=== PATIENT | male | born 1955 | race Caucasian/White ===

== ENCOUNTER → 2018-11-04 06:58 | Outpatient (CLI) | payer BC, MEDICARE, SELFPAY ==
[2014-05-11 09:47] VITALS: BMI 32.8
--- NOTE | 2018-11-04 09:30 | STRESSREP ---
Stress Test Report Date: 11-04-18 Procedure: Pharmacologic stress nuclear imaging study Indications: Chest pain; shortness of breath/dyspnea Consent: Per the patient Procedure: The patient underwent pharmacologic (Regadenoson) evaluation with a peak heart rate of 101 beats per minute (64 %predicted maximal heart rate) and a peak blood pressure of 162/70 mmHg. The baseline ECG demonstrated normal sinus rhythm. The peak pharmacologic ECG demonstrated no obvious ECG changes. There were no cardiac dysrhythmias pretest, during pharmacologic infusion, or recovery. There was no complaint of chest discomfort during pharmacologic infusion or recovery. The examination was discontinued secondary to completion of protocol. Impression: 1. Pharmacologic (Regadenoson) evaluation 2. Peak pharmacologic ECG with no obvious ECG changes. 3. There were no cardiac dysrhythmias pretest, during pharmacologic infusion, or recovery. 4. Nuclear images pending Myocardial perfusion imaging study: Technique: The patient was injected with 14.8 millicuries of technetium 99m Cardiolite and subsequently rest SPECT Cardiolite nuclear imaging was obtained in the horizontal long, vertical long, and short axis views. The patient underwent pharmacologic (Regadenoson) evaluation with a peak heart rate of 101 beats per minute (64 % percent predicted maximal heart rate) and a peak blood pressure of 162/70 mmHg. The patient was injected with 44.4 millicuries of technetium 99m Cardiolite and subsequently stress SPECT Cardiolite nuclear imaging was obtained in the horizontal long, vertical long, and short axis views. A gated Cardiolite study at peak stress was obtained. Interpretation: Rest and stress SPECT Cardiolite nuclear imaging status post realignment, normalization, and attenuation correction demonstrate the appearance of relative uniform tracer uptake and myocardial perfusion appearing within normal limits at rest. Status post stress there is an area of diminished myocardial perfusion/tracer uptake in portions of the basal to mid anterior segments. There are similar type findings on the resting and stress polar map images. There is diminished and systolic thickening and brightening in the aforementioned area.. The gated Cardiolite study demonstrates myocardial thickening and inward wall motion. The reported LVEF is 64 %. Impression: 1. Rest and stress SPECT Cardiolite nuclear imaging demonstrate myocardial perfusion changes concerning for an area of stress-induced myocardial ischemia and portions of the basal to mid anterior segments. 2. The gated Cardiolite study reports an LVEF of 64 %. This note was generated with Dragon dictation software. It may contain incorrect words, spelling, and punctuation that were not noted in checking the note before signing.
== END ==
PROVIDERS: Family Provider Family Medicine; PCP Family Medicine; Referring Provider Family Medicine; Visit Provider Family Medicine
DX: R06.02 Shortness of breath (principal); Z87.891 Personal history of nicotine dependence
CPT/HCPCS: 78452; 93017; A9500; A4216; J2785

== ENCOUNTER → 2018-11-09 07:24 | Outpatient (CLI) | payer BC, MEDICARE, SELFPAY ==
[2014-05-11 09:47] VITALS: BMI 32.8
--- NOTE | 2018-11-09 07:30 | AAVD_ITS ---
Reason For Study: Ex Smoker Aorta Measurements Aorta Doppler Measurements Proximal aorta measures1.31 x 1.31cm. in cross- Peak systolic flow velocities within the proximal sectional axis. aorta measure 90.4 cm/sec. Proximal aorta measures1.28cm. in longitudinal Peak systolic flow velocities within the mid aorta axis. measure 97.8 cm/sec. Mid aorta measures1.22 x 1.21cm. in cross- Peak systolic flow velocities within the distal sectional axis. aorta measure 146.2 cm/sec. Mid aorta measures1.22cm. in longitudinal axis. Distal aorta measures1.40 x 1.38cm. in cross- sectional axis. Distal aorta measures1.45cm. in longitudinal axis. Left Iliac Artery Left iliac artery measures 0.91 x 0.96 cm. in the cross-sectional axis. Left iliac artery measures 0.89 cm. in the longitudinal axis. Peak systolic velocity in the left iliac artery measures 104.5 cm/sec. Right Iliac Artery Right iliac artery measures 0.72 x 0.73 cm. in the cross-sectional axis. Right iliac artery measures 0.72 cm. in the longitudinal axis. Peak systolic velocity in the right iliac artery measures 104.5 cm/sec. Procedure Aorta IVC Iliac vasculature or bypass grafts 35436. Exam performed in department. Interpretation Summary The intra-abdominal aorta appears to be of normal caliber, without evidence of aneurysmal dilatation. The iliac arteries also appear to be normal in size bilaterally. The intra-abdominal aorta and iliac arteries appear to be patent, demonstrating normal, pulsatile arterial flow and normal peak systolic velocities. Ordering Physician: El Lee Referring Physician: Ivette Carter Performed By: Isabel Norwood RVT
== END ==
PROVIDERS: Family Provider Family Medicine; PCP Family Medicine; Referring Provider Family Medicine; Visit Provider Family Medicine
DX: R06.02 Shortness of breath (principal); I10 Essential (primary) hypertension; Z87.891 Personal history of nicotine dependence
CPT/HCPCS: 93978